=== PATIENT | female | born 2000 | race Two or more races ===

== ENCOUNTER 2019-09-01 19:15 | Emergency (ER) | payer SELFPAY ==
[~2019-09-01] VITALS: Ht 157.5 cm; Wt 54.4 kg
[2019-09-01 19:16] VITALS: BP 126/75
[2019-09-01] MEDS ORDERED: ONDANSETRON 4 MG TAB.RAPDIS ONE (21:19)
[2019-09-01] MEDS ORDERED: ONDANSETRON 4 MG TAB.RAPDIS SL ONE (21:30)
--- NOTE | 2019-09-01 21:34 | NUR ---
PT BROTHER: JOSHUA LAM,
== END 2019-09-01 22:15 | disposition home or self-care (01) ==
LOC: ER 19:22
DX: F11.23 Opioid dependence with withdrawal (principal)
CPT/HCPCS: 99283; Q0162